=== PATIENT | male | born 1985 | race Two or more races ===

== ENCOUNTER 2023-07-07 08:22 | Emergency (ER) | payer MEDICAID ==
[~2023-07-07] VITALS: Ht 188 cm; Wt 98.5 kg
[2023-07-07 08:42] VITALS: BP 131/80; PULSE 70; RESP 16; TEMP 98.5; O2SAT 98
== END 2023-07-07 12:31 | disposition home or self-care (01) ==
LOC: ER 08:23
DX: M54.41 Lumbago with sciatica, right side (principal); R20.0 Anesthesia of skin; F17.200 Nicotine dependence, unspecified, uncomplicated; Z88.8 Allergy status to other drugs, medicaments and biological substances
CPT/HCPCS: 72100; 72220; 99284

== ENCOUNTER 2023-07-15 05:47 | Emergency (ER) | payer MEDICAID ==
[~2023-07-15] VITALS: Ht 188 cm; Wt 87.3 kg
[2023-07-15 07:30] LABS: BASOPHILS % (AUTO) 0.6 % (0-1); EOSINOPHILS # (AUTO) 0.3 X10'3 (0-0.9); EOSINOPHILS % (AUTO) 4.7 % (0-6); HEMATOCRIT 41.4 % (42.0-52.0); HEMOGLOBIN 14.3 g/dl (14.0-17.9); LYMPHOCYTES # (AUTO) 0.9 X10'3 (1.1-4.8); LYMPHOCYTES % (AUTO) 12.9 % (21-51); MEAN CORPUSCULAR HEMOGLOBIN 31.2 PG (27.0-31.0); MEAN CORPUSCULAR HGB CONC 34.6 g/dL (33.0-36.5); MEAN CORPUSCULAR VOLUME 90.1 FL (78-98); MEAN PLATELET VOLUME 7.2 FL (7.4-10.4); MONOCYTES # (AUTO) 0.6 X10'3 (0-0.9); NEUTROPHILS # (AUTO) 5.1 X10'3 (1.8-7.7); NEUTROPHILS % (AUTO) 72.8 % (42-75); PLATELET COUNT 288 X10'3 (140-440); RED BLOOD COUNT 4.59 X10'6 (4.70-6.10); RED CELL DISTRIBUTION WIDTH 13.8 % (11.5-14.5)
[2023-07-15 07:33] LABS: BILIRUBIN,URINE NEGATIVE (Neg); CLARITY,URINE CLEAR (Clear); COLOR,URINE YELLOW (Yellow); GLUCOSE, URINE NEGATIVE (Neg); KETONES,URINE NEGATIVE (Neg); LEUKOCYTE ESTERASE ,URINE NEGATIVE (Neg); NITRITES, URINE NEGATIVE (Neg); OCCULT BLOOD,URINE NEGATIVE (Neg); PH,URINE 6.5 (4.8-8.0); PROTEIN,URINE NEGATIVE (Neg); UROBILINOGEN,URINE 0.2 E.U/dL (0.2-1.0)
[2023-07-15 07:40] LABS: URINE AMPHETAMINE SCREEN NEGATIVE (Neg); URINE BARBITUATE SCREEN NEGATIVE (Neg); URINE BENZODIAZEPINES SCREEN NEGATIVE (Neg); URINE CANNABINOID SCREEN POSITIVE (Neg); URINE COCAINE SCREEN NEGATIVE (Neg); URINE METHADONE SCREEN NEGATIVE (Neg); URINE OPIATE SCREEN NEGATIVE (Neg); URINE PHENCYCLIDINE SCREEN NEGATIVE (Neg)
[2023-07-15 07:43] LABS: UA COLLECTION TYPE NON-SPECIFIED
[2023-07-15 07:46] LABS: ALBUMIN 4.4 G/DL (3.4-5.0); ANION GAP 9 (8-16); BLOOD UREA NITROGEN 11 MG/DL (7-18); BUN/CREATININE RATIO 13.1 (10.0-20.0); CALCIUM 9.2 MG/DL (8.5-10.1); CHLORIDE 105 MMOL/L (99-107); CREATININE 0.84 MG/DL (0.60-1.10); GLUCOSE 98 MG/DL (70-104); POTASSIUM 4.1 MMOL/L (3.5-5.1); SODIUM 140 MMOL/L (135-145); THYROID STIMULATING HORMONE 3.53 ulU/ml (0.34-4.50); TOTAL CARBON DIOXIDE 26.4 MMOL/L (24-32); eCRCL 139 ML/MIN; eGFR > 90 ML/MIN
[2023-07-15] MEDS ORDERED: CYCL-1 PO (09:11)
[2023-07-15 09:56] VITALS: BP 131/92; PULSE 69; TEMP 98.4; O2SAT 99
[2023-07-15] MEDS: diphenhydrAMINE 50 mg/ml inj IM ONE (10:02)
[2023-07-15 10:03] VITALS: RESP 16
[2023-07-15] MEDS: ketorolac trometh inj. 60 MG/2 ML VIAL IM ONE (10:03)
== END 2023-07-15 10:06 | disposition home or self-care (01) ==
LOC: ER 05:48
DX: M62.838 Other muscle spasm (principal); R20.2 Paresthesia of skin; M54.31 Sciatica, right side; F41.9 Anxiety disorder, unspecified; F32.A Depression, unspecified; Z88.8 Allergy status to other drugs, medicaments and biological substances; Z79.899 Other long term (current) drug therapy
CPT/HCPCS: 36415; 72131; 80048; 80305; 81003; 83735; 84443; 85025; 96372; 99285; J1200; J1885; 99284

== ENCOUNTER 2023-08-27 18:36 | Emergency (ER) | payer MEDICAID ==
[~2023-08-27] VITALS: Ht 188 cm; Wt 87.3 kg
[~2023-08-27 18:36] MED LIST: CYCL-1 PO
[2023-08-27 18:54] VITALS: TEMP 99
[2023-08-27 18:56] LABS: BASOPHILS % (AUTO) 0.5 % (0-1); EOSINOPHILS # (AUTO) 0.2 X10'3 (0-0.9); HEMATOCRIT 41.6 % (42.0-52.0); HEMOGLOBIN 14.8 g/dl (14.0-17.9); LYMPHOCYTES # (AUTO) 1.8 X10'3 (1.1-4.8); LYMPHOCYTES % (AUTO) 24.9 % (21-51); MEAN CORPUSCULAR HEMOGLOBIN 31.3 PG (27.0-31.0); MEAN CORPUSCULAR HGB CONC 35.5 g/dL (33.0-36.5); MEAN PLATELET VOLUME 6.6 FL (7.4-10.4); MONOCYTES # (AUTO) 0.6 X10'3 (0-0.9); MONOCYTES % (AUTO) 7.8 % (2-12); NEUTROPHILS # (AUTO) 4.5 X10'3 (1.8-7.7); NEUTROPHILS % (AUTO) 63.8 % (42-75); PLATELET COUNT 307 X10'3 (140-440); RED BLOOD COUNT 4.72 X10'6 (4.70-6.10); RED CELL DISTRIBUTION WIDTH 13.2 % (11.5-14.5)
[2023-08-27 19:15] LABS: ALANINE AMINOTRANSFERASE 25 U/L (12-78); ALBUMIN 4.6 G/DL (3.4-5.0); ALBUMIN/GLOBULIN RATIO 1.1 (1.1-1.5); ALKALINE PHOSPHATASE 67 IU/L (46-116); ANION GAP 11 (8-16); ASPARTATE AMINO TRANSFERASE 11 U/L (10-37); BLOOD UREA NITROGEN 6 MG/DL (7-18); BUN/CREATININE RATIO 6.5 (10.0-20.0); CALCIUM 9.3 MG/DL (8.5-10.1); CHLORIDE 100 MMOL/L (99-107); CREATININE 0.93 MG/DL (0.60-1.10); GLUCOSE 110 MG/DL (70-104); POTASSIUM 3.6 MMOL/L (3.5-5.1); SODIUM 138 MMOL/L (135-145); TOTAL CARBON DIOXIDE 27.3 MMOL/L (24-32); TOTAL PROTEIN 8.7 G/DL (6.4-8.2); eCRCL 124 ML/MIN; eGFR 90 ML/MIN
[2023-08-27 19:16] LABS: PRO BRAIN NATRIURETIC PEPTIDE 35 PG/ML (0-125)
[2023-08-27 19:45] LABS: FREE T4 (FREE THYROXINE) 0.81 NG/DL (0.73-1.40); THYROID STIMULATING HORMONE 1.57 ulU/ml (0.34-4.50)
[2023-08-27 22:19] VITALS: BP 139/91; PULSE 69; RESP 12; O2SAT 100
== END 2023-08-27 22:43 | disposition home or self-care (01) ==
LOC: ER 18:36
DX: R07.89 Other chest pain (principal); M19.90 Unspecified osteoarthritis, unspecified site; G89.29 Other chronic pain; M54.9 Dorsalgia, unspecified; F41.9 Anxiety disorder, unspecified; F32.A Depression, unspecified; Z88.8 Allergy status to other drugs, medicaments and biological substances; Z79.899 Other long term (current) drug therapy
CPT/HCPCS: 36415; 80053; 83880; 84439; 84443; 84484; 85025; 93005; 99284

== ENCOUNTER 2024-08-29 11:37 | Emergency (ER) | payer BC, MEDICAID ==
[~2024-08-29] VITALS: Ht 185.4 cm; Wt 90.4 kg
[2024-08-29] MEDS: ketorolac trometh 30MG/ML vial 30 MG/ML VIAL IM ONE (13:01)
[2024-08-29] MEDS ORDERED: CYCL-394 PO (13:04)
--- NOTE | 2024-08-29 13:05 | Physician Documentation ---
History of Present Illness ~ Chief Complaint: Back Pain Stated Complaint: BACK PAIN Time Seen by MD: 12:53 Primary Medical Doctor: [facility] HPI This 39-year-old male with a history of chronic back pain presents with a complaint of right-sided lumbosacral pain which has been ongoing for the last 2- 3 days. He denies any injury however. So denies any red flag symptoms including numbness tingling fevers or saddle anesthesia Medication Reconciliation Allergies: Coded Allergies: tramadol (Unverified Allergy, Unknown, weakness, hives, 08/27/23) Scheduled Cyclobenzaprine HCl (Cyclobenzaprine HCl), 1 TAB PO Q8H Cyclobenzaprine* (Cyclobenzaprine*), 1 TAB PO HS Past Medical History Past Medical History: Arthritis, Chronic Back Pain, Anxiety, Bipolar, Depression Past Surgical History: noncontributory Lives In: Home Occupation: employed Review of Systems All Other Systems at this time: Reviewed and Negative ROS As stated above in the HPI, otherwise all systems are reviewed and negative. Genitourinary: Reports: decreased urine output Physical Exam Physical Exam Vital Signs: Temperature: 98.3, Source: Oral, Heart Rate: 70, Respiratory Rate: 16, BP: 132/102, Pulse Oximetry: 99, Weight: 90.400 Oxygen Flow Rate: 0 Physical Exam General: Alert, no apparent distress. back; tender to the left sacral region via palpation Respiratory: Lungs clear, no respiratory distress. Neurologic: Oriented x4. Psychiatric: Normal mood and affect. Skin: Normal color, warm and dry. No edema, no ecchymosis. Progress Results/Orders Results/Orders Completed Orders - AUGUSTIN HORN NP Ketorolac Trometh 30mg/Ml Vial (Toradol (08/29/24 12:50) Medications Received in ER Medications (Trade) Dose Ordered Sig/Chucho Route PRN Reason Start Time Stop Time Status Last Admin Dose Admin (Toradol inj. 30mg/ml) 30 mg ONCE ONCE IM 08/29/24 12:50 08/29/24 12:51 DC 08/29/24 13:01 30 MG Vital Signs 08/29/24 08/29/24 11:41 13:23 Temp 98.3 98.5 Pulse 70 84 Resp 16 19 B/P (MAP) 132/102 132/87 Pulse Ox 99 98 O2 Flow Rate 0 Medical Decision Making Findings Patient presents with suspected on lumbar strain/exacerbation. I did treat with Toradol and advised him to take cyclobenzaprine at home along with ibuprofen as directed. Benefit from a referral to get physical therapy for a better baseline and reduction of simple Differential Dx:Considerations: Include: AAA, Aortic dissection, Appendicitis, Bowel obstruction, Cholelithiasis, Cholangitis, DJD, Fracture, Hepatitis, HNP, Musculoskeletal pain, Pancreatitis, Pyelonephritis, Renal infarction, Strain, Urinary obstruction, Urolithiasis, Urinary tract infection, Other Departure Disposition: 01 HOME / SELF CARE / HOMELESS Impression: Primary Impression: Lumbar sprain Additional Impression: Strain of lumbar region Condition: Stable Discharge Instructions: Chronic Back Pain, Lumbosacral Strain Additional Instructions: Continue to have problems I recommend going to your primary care and obtaining a referral to get some physical therapy. This is the best way to improve your symptoms long-term Departure Forms: Excuse form Work or School Excused From: Work Excuse beginning now through the following date: Sep 01, 2024 May Return but still avoid physical Activity from now until: Sep 01, 2024 May Return to full physical activity as of: Sep 01, 2024 Referrals: NO PRIMARY CARE PROVIDER (PCP) Prescriptions Cyclobenzaprine HCl (Cyclobenzaprine HCl) 10 Mg Tablet 1 TAB PO Q8H for muscle spasms for 10 Days, #30 TAB Prov: AUGUSTIN HORN NP 08/29/24 Education Educated: Patient Educated regarding: diagnosis Signature Scribe Signature: f Attestation: Scribed for Augustin Horn Quality Lab Technician by Augustin Little NP . 08/29/24 13:35 AUGUSTIN HORN NP Aug 29, 2024 13:05
[2024-08-29 13:23] VITALS: BP 132/87; PULSE 84; RESP 19; TEMP 98.5; O2SAT 98
== END 2024-08-29 13:26 | disposition home or self-care (01) ==
LOC: ER 11:38
DX: S33.5XXA Sprain of ligaments of lumbar spine, initial encounter (principal); S39.012A Strain of muscle, fascia and tendon of lower back, initial encounter; F41.9 Anxiety disorder, unspecified; M19.90 Unspecified osteoarthritis, unspecified site; F31.9 Bipolar disorder, unspecified; Z88.5 Allergy status to narcotic agent; Z79.899 Other long term (current) drug therapy; X58.XXXA Exposure to other specified factors, initial encounter; Y93.89 Activity, other specified; Y92.89 Other specified places as the place of occurrence of the external cause; Y99.8 Other external cause status
CPT/HCPCS: 96372; 99283; J1885